=== PATIENT | female | born 1960 | race Caucasian/White ===

== ENCOUNTER 2020-02-24 15:28 | Emergency (ER) | payer MEDICAID ==
[~2020-02-24] VITALS: Ht 152.4 cm; Wt 90.0 kg
[2020-02-24 17:15] VITALS: BP 138/94
== END 2020-02-24 18:16 | disposition left against medical advice (07) ==
LOC: ER 15:28
DX: R06.02 Shortness of breath (principal); R09.02 Hypoxemia; I10 Essential (primary) hypertension; Z20.828 Contact with and (suspected) exposure to other viral communicable diseases
CPT/HCPCS: 87426; 99283